=== PATIENT | female | born 1945 | race Caucasian/White ===

== ENCOUNTER 2021-07-16 14:17 | Observation (INO) | payer OTHER ==
[~2021-07-16] VITALS: Ht 149.9 cm; Wt 78.0 kg
[2021-07-16 14:55] VITALS: BP 112/77
[2021-07-16 15:00] LABS: BASO % 0.2 % (0.0-1.0); EOS % 0.2 % (1.0-4.0); HEMATOCRIT 46.2 % (37.0-47.0); LYMPH # 0.8 10*3/uL (1.3-4.4); MEAN CELL VOLUME 94.1 fl (81.0-99.0); MEAN CORPUSCULAR HGB 29.5 pg (27.0-31.0); MEAN CORPUSCULAR HGB CONC 31.4 g/dl (33.0-37.0); MONO # 0.7 10*3/uL (0.1-1.0); MONO % 16.3 % (3.0-9.0); NEUT # 2.6 10*3/uL (2.3-7.9); NEUT % 63.1 % (47.0-73.0); PLATELET COUNT AUTOMATED 183 10*3/uL (130-400); RED BLOOD COUNT 4.91 10*6/uL (4.10-5.10); RED CELL DISTRI WIDTH 13.3 % (0-14.5); WHITE BLOOD COUNT 4.2 10*3/uL (4.8-10.8)
[2021-07-16 15:21] LABS: ALKALINE PHOSPHATASE 64 U/L (45-117); BUN 39 mg/dl (7-24); CHLORIDE 107 mmol/L (98-107); CREATININE 2.23 mg/dL (0.55-1.02); POTASSIUM 3.4 mmol/L (3.5-5.1); SGOT/AST 29 IU/L (3-35); SGPT/ALT 26 U/L (12-78); SODIUM 140 mmol/L (136-145); TOTAL PROTEIN 6.8 gm/dL (6.4-8.2)
[2021-07-16 15:32] LABS: ETHYL ALCOHOL < 3.0 mg/dl (<3); TROPONIN I 0.055 ng/ml (<0.045)
[2021-07-16 16:19] LABS: BILIRUBIN 1+ (Negative); BLOOD Negative (Negative); CLARITY Turbid (Clear); COLOR Dark Yellow (Yellow); GLUCOSE Negative (Negative); KETONE Trace (Negative); LEUKO ESTERASE Trace (Negative); NITRITE Negative (Negative)
[2021-07-16 16:28] LABS: URINE AMPHETAMINES < 1000 (1000ng/ml); URINE BARBITURATES < 200 (200ng/ml); URINE BENZODIAZEPINES < 200 (200ng/ml); URINE CANNABINOIDS (THC) < 50 (50ng/ml); URINE COCAINE < 300 (300ng/ml); URINE METHADONE < 300 (300ng/ml); URINE OPIATES < 300 (300ng/ml)
[2021-07-16 16:31] LABS: BACTERIA 4+; EPITHELIAL CELLS 51-100; WBC 31-40 wbc/hpf (0-5)
[2021-07-16 16:33] LABS: URINE PHENCYCLIDINE < 25 (25ng/ml)
[2021-07-16 18:39] VITALS: BP 139/54
[2021-07-16 20:04] VITALS: BP 148/59
[2021-07-16 23:46] VITALS: BP 144/64
[2021-07-17 03:51] VITALS: BP 126/46
[2021-07-17 05:44] LABS: ALBUMIN 2.6 gm/dl (3.1-4.5); CREATININE 1.18 mg/dL (0.55-1.02); FREE T4 1.33 ng/dl (0.76-1.46); POTASSIUM 3.7 mmol/L (3.5-5.1); TOTAL PROTEIN 6.1 gm/dL (6.4-8.2)
[2021-07-17 05:49] LABS: THYROID STIM HORMONE (HS) 0.817 uIU/ml (0.358-4.75)
[2021-07-17 06:32] VITALS: BP 94/55
[2021-07-17 06:44] LABS: BASO % 0.3 % (0.0-1.0); EOS # 0.1 10*3/uL (0.0-0.4); EOS % 1.3 % (1.0-4.0); HEMATOCRIT 41.8 % (37.0-47.0); LYMPH # 0.7 10*3/uL (1.3-4.4); LYMPH % 18.6 % (27.0-41.0); MEAN CELL VOLUME 93.3 fl (81.0-99.0); MEAN CORPUSCULAR HGB 29.7 pg (27.0-31.0); MEAN CORPUSCULAR HGB CONC 31.8 g/dl (33.0-37.0); MEAN PLATELET VOLUME 10.7 fl (9.6-12.3); MONO # 0.6 10*3/uL (0.1-1.0); MONO % 14.5 % (3.0-9.0); NEUT # 2.5 10*3/uL (2.3-7.9); NEUT % 64.8 % (47.0-73.0); PLATELET COUNT AUTOMATED 163 10*3/uL (130-400); RED BLOOD COUNT 4.48 10*6/uL (4.10-5.10); RED CELL DISTRI WIDTH 13.5 % (0-14.5); WHITE BLOOD COUNT 3.9 10*3/uL (4.8-10.8)
[2021-07-17 07:13] LABS: VITAMIN D, 25-HYDROXY 97.7 ng/mL (30-100)
[2021-07-17 07:45] VITALS: BP 110/42
[2021-07-17] MEDS ORDERED: ELIQUIS5 M1 PO (14:02)
[2021-07-17] MEDS ORDERED: SINGULAIR10 M1 PO (14:29)
[2021-07-17] MEDS ORDERED: PANTOPRAZOLE SO40 MG PO (14:30)
[2021-07-17] MEDS ORDERED: LIPITOR20 MG PO (14:30)
[2021-07-17] MEDS ORDERED: COZAAR100 MG PO (14:31)
[2021-07-17] MEDS ORDERED: VITAMIN D31250 MC1 PO (14:33)
[2021-07-17] MEDS ORDERED: Lopressor25 MG PO (14:34)
[2021-07-17 14:35] VITALS: BP 108/44
[2021-07-17] MEDS ORDERED: COZAAR50 M1 PO (14:45)
[2021-07-17] MEDS ORDERED: LOPRESSOR25 MG PO ×2 (14:45)
== END 2021-07-17 15:19 | disposition home or self-care (01) ==
LOC: ED 14:17 → EDHOLD 17:27
PROVIDERS: Emergency Medicine; Internal Medicine; ADMIT Family Medicine; ATTEND Family Medicine
DX: R77.8 Other specified abnormalities of plasma proteins (principal); R19.7 Diarrhea, unspecified; D72.819 Decreased white blood cell count, unspecified; E87.6 Hypokalemia; E44.1 Mild protein-calorie malnutrition; G93.41 Metabolic encephalopathy; N17.0 Acute kidney failure with tubular necrosis; E86.0 Dehydration; K58.9 Irritable bowel syndrome, unspecified; I48.91 Unspecified atrial fibrillation; Z79.01 Long term (current) use of anticoagulants; R06.02 Shortness of breath; Z79.899 Other long term (current) drug therapy; I10 Essential (primary) hypertension; E78.5 Hyperlipidemia, unspecified